=== PATIENT | female | born 1995 | race Caucasian/White ===

== ENCOUNTER → 2020-01-02 | Outpatient (CLI) | payer MEDICAID, OTHER ==
[2020-01-02 17:45] LABS: BASO % 0.4 % (0.0-1.0); EOS # 0.5 10^3/uL (0.0-0.5); EOS % 4.9 % (0.0-3.0); HEMATOCRIT 36.1 % (36.0-47.0); HEMOGLOBIN 11.9 g/dl (12.0-15.5); LYMPH # 2.2 10^3/uL (1.5-5.0); LYMPH % 22.2 % (24.0-44.0); MEAN CORPUSCULAR HEMOGLOBIN 25.3 pg (27.0-33.0); MEAN CORPUSCULAR VOLUME 76.6 fl (80.0-96.0); MONO # 0.7 10^3/uL (0.0-0.8); MONO % 6.6 % (0.0-5.0); NEUTROPHILS # 6.6 10^3/uL (1.5-8.5); NEUTROPHILS % 65.7 % (36.0-66.0); PLATELET COUNT, AUTOMATED 282 10^3/uL (150-450); RED BLOOD COUNT 4.71 10^6/uL (4.00-5.40)
[2020-01-02 17:59] LABS: HEPATITIS C VIRUS ABY INDEX 0.3 INDEX (<0.8); HIV 1&2 SCREEN CENTAUR NEGATIVE (NEGATIVE)
[2020-01-02 18:53] LABS: CHLAMYDIA DNA AMPLIFICATION NEGATIVE (NEGATIVE); GC DNA AMPLIFICATION NEGATIVE (NEGATIVE)
== END ==
LOC: M PLALAB 14:30
PROVIDERS: ATTEND Advanced Practice Midwife
DX: Z36.89 Encounter for other specified antenatal screening (principal)

== ENCOUNTER → 2020-02-14 | Outpatient (CLI) | payer MEDICAID, OTHER ==
--- NOTE | 2020-02-19 07:49 | REP ---
OB ULTRASOUND HISTORY: Anatomy screening. TECHNIQUE: Real-time sonographic evaluation of the gravid uterus is performed. FINDINGS: There is a single living intrauterine gestation. The estimated gestational age is reportedly 19 weeks 3 days, estimated date of confinement (EDC) 07/07/2020. Todays measurements indicate appropriate growth. BIOMETRY CHART: BPD 43 mm 19 weeks 0 days 38th percentile HC 164 mm 19 weeks 1 day 41st percentile AC 156 mm 20 weeks 5 days 79th percentile Femur length 31 mm 19 weeks 5 days 56th percentile AC/HC ratio 1.05 Slightly below normal range 1.06 to 1.25 Estimated weight 333 grams position breech. Placenta is posterior and fundal and grade 1 with no previa or abruption. heart rate is 143 beats per minute. The visualized anatomy includes lateral ventricles, posterior fossa, upper lip, four chamber heart, ventricular outflow tracts, stomach, cord insertion, three-vessel cord, bladder and spine, which were all grossly unremarkable. Cervix is closed and measures 4.4 cm in length. There is a cystic structure in the right choroid plexus, which is of doubtful significance, measuring about 3-4 mm in diameter. MTDD
== END ==
LOC: M WHC 12:52
PROVIDERS: ATTEND Advanced Practice Midwife
DX: Z34.82 Encounter for supervision of other normal pregnancy, second trimester (principal); Z3A.19 19 weeks gestation of pregnancy